=== PATIENT | female | born 1965 | race Caucasian/White ===

== ENCOUNTER 2025-02-11 17:50 | Emergency (ER) | payer BC, SELFPAY ==
[2025-02-11 17:51] VITALS: BP 157/76
--- NOTE | 2025-02-11 19:06 | ED.GENMED ---
History of Present Illness
General
Chief Complaint: Skin Surface Trauma
Time Seen by Provider: 02/11/25 18:54
History of Present Illness
History of Present Illness:
59-year-old female presents the emergency department for evaluation of a minor skin tear to the right forearm sustained on a filing cabinet. Bleeding is controlled with pressure.
Past History
Past History
ED Past Medical History: None
ED Past Surgical History: None
Social History
Tobacco: Smoker
Alcohol: Occasional
Drug: None
Personal:
Living: with family
Employment: Employed
Family History
Family History: Other (NoncontributoryNoncontributory)
Review of Systems
Review of Systems
Allergies reviewed?: Yes
All Other Systems: ROS reviewed and negative except as documented in HPI and ROS
Phy Exam
Physical Exam
Physical Exam:
GEN: Well appearing, NAD, WDWN
HEENT: Oral mucosa moist, no scleral icterus
Cardiac: Regular rate
Lung: No respiratory distress, no tachypnea
MSK: No gross deformity or injuries
Skin: Good color, no pallor or jaundice, no rashes. Minor 3 cm skin tear to the right dorsal forearm
Neuro: AO x3, moves all extremities freely
Psych: Calm, cooperative
Course
Vital Signs
Initial and Last Documented VS:
Initial Vital Signs
Temp Pulse Resp BP Pulse Ox
98.2 F 88 20 157/76 97
02/11/25 17:51 02/11/25 17:51 02/11/25 17:51 02/11/25 17:51 02/11/25 17:51
Last Documented Vital Signs
Temp Pulse Resp BP Pulse Ox
98.2 F 88 20 157/76 97
02/11/25 17:51 02/11/25 17:51 02/11/25 17:51 02/11/25 17:51 02/11/25 17:51
MDM/Problems Addressed
MDM/Problems Addressed:
Wound irrigated and dressed with Neosporin and a pressure dressing. Wound care guidelines discussed
*Critical Care Note
Total Time (30-74mins, 75-104mins- exclusive of procedures): Not Applicable
ED Attending Note
-
Portions of this chart may have been created with voice recognition software.� Occasional wrong word or��sound alike� substitutions may have occurred due to the inherent limitations of voice recognition software.
Discharge Plan
Departure
Patient Disposition: Home (Routine Discharge)
Date of Disposition: 02/11/25
Time of Disposition: 19:06
Patient with high blood pressure during this ER visit?: No
Discharge Problem:
Skin tear of forearm without complication
Instructions: Wound Care (DC)
Prescriptions:
No Action
epinephrine [EpiPen] 0.3 MG/0.3/SYRINGE auto-injector
0.3 mg IM ONCE Qty: 1 0RF
cyclobenzaprine 10 MG tablet
10 mg PO TIDPRN PRN (Reason: pain) Qty: 12 0RF
ibuprofen 600 MG tablet
600 mg PO Q6HPRN PRN (Reason: pain) Qty: 20 0RF
tramadol [Ultram] 50 MG tablet
50 mg PO TID Qty: 10 0RF
Activity Restrictions/Additional Instructions:
Remove the dressing in the morning and gently cleanse with regular soap and water. No need for antibacterial cleansers. If bleeding resumes apply small amount of Neosporin or Vaseline and reapply a similar dressing is what we placed today
Interventions
Interventions:
*General Assessment Last Done: 02/11/25 17:51
*Nursing Disposition Last Done: 02/11/25 19:25
ED-Skin Assessment Last Done: 02/11/25 18:47
Discharge Date and Time
Discharge Date/Time: 02/11/25 19:25
Print Language: [place]
== END 2025-02-11 19:25 | disposition home or self-care (01) ==
LOC: EMR 17:50
PROVIDERS: EMERGENCY PHYSICIAN Emergency Medicine; FAMILY PHYSICIAN Family Medicine
DX: S51.811A Laceration without foreign body of right forearm, initial encounter (principal); W45.8XXA Other foreign body or object entering through skin, initial encounter; F17.200 Nicotine dependence, unspecified, uncomplicated
CPT/HCPCS: 99282

== ENCOUNTER → 2025-04-18 13:59 | Outpatient (REF) | payer BC, SELFPAY | LOC: WDC 13:59 | PROVIDERS: ATTENDING PHYSICIAN Registered Nurse | DX: Z12.31 Encounter for screening mammogram for malignant neoplasm of breast (principal) | CPT/HCPCS: 77063; 77067 ==

== ENCOUNTER → 2025-04-28 08:33 | Outpatient (REF) | payer BC, SELFPAY | LOC: WDC 08:33 | PROVIDERS: ATTENDING PHYSICIAN Registered Nurse | DX: R92.8 Other abnormal and inconclusive findings on diagnostic imaging of breast (principal) | CPT/HCPCS: 76642 ==